=== PATIENT | female | born 1955 | race Caucasian/White ===

== ENCOUNTER 2021-12-14 21:13 | Emergency (ER) | payer MEDICARE ==
[2021-12-14 22:43] LABS: HEMOGLOBIN 14.3 gm/dl (12.3-15.3); RED BLOOD COUNT 4.49 M/UL (4.00-5.10)
[2021-12-15] MEDS ORDERED: TORADOL 10 MG T10 MG PO (03:31)
[2021-12-15] MEDS ORDERED: ZOFRAN ODT 4 MG4 MG GT (03:31)
== END 2021-12-15 03:45 | disposition home or self-care (01) ==
LOC: ER1 21:13
PROVIDERS: Family Medicine
DX: N20.0 Calculus of kidney (principal)
CPT/HCPCS: 80053; 81001; 83605; 83690; 85025; 96374; 96375; 99284; J1885; J2405; Q9967